=== PATIENT | female | born 1985 | race Caucasian/White ===

== ENCOUNTER 2024-09-24 09:54 | Emergency (ER) | payer OTHER ==
[2024-09-24 10:01] VITALS: TEMP 98.2
--- NOTE | 2024-09-24 11:00 | ED ---
General Adult HPI - General Chief complaint: Abdominal Pain Stated complaint: Abdominal Pain Time Seen by Provider: 09/24/24 10:08 Source: patient, RN notes reviewed Mode of arrival: ambulatory Limitations: no limitations - History of Present Illness Initial comments: Patient is a 39-year-old female presenting to the emergency department with concern with abdominal discomfort. Symptoms have progressed over the past 2 to 3 weeks. Patient has occasional nausea. Symptoms do worsen with oral intake. Discomfort is mid to right upper abdomen. Discomfort is currently 7/10. - Related Data Previous Rx's Medication Instructions Recorded Famotidine [Pepcid] 20 mg PO BID #30 tablet 09/24/24 Ketorolac [Toradol] 10 mg PO Q6HR PRN #15 tab 09/24/24 Metoclopramide HCl [Reglan] 10 mg PO Q6HR PRN #15 tablet 09/24/24 Allergies Allergy/AdvReac Type Severity Reaction Status Date / Time No Known Allergies Allergy Verified 09/24/24 10:01 Review of Systems ROS Statement: Those systems with pertinent positive or pertinent negative responses have been documented in the HPI. ROS Other: All systems not noted in ROS Statement are negative. Constitutional: Denies: fever Eyes: Denies: eye pain ENT: Denies: ear pain Respiratory: Denies: cough Cardiovascular: Denies: chest pain Endocrine: Denies: fatigue Gastrointestinal: Reports: as per HPI, abdominal pain, nausea. Denies: vomiting Skin: Denies: rash Past Medical History Additional Past Medical History / Comment(s): closed head injury, blood transfusion, diverticulitis, History of Any Multi-Drug Resistant Organisms: None Reported Past Surgical History: Appendectomy, Tubal Ligation Additional Past Surgical History / Comment(s): upper and lower GI scope, Past Psychological History: Anxiety, Depression Smoking Status: Current every day smoker Past Alcohol Use History: None Reported Past Drug Use History: Marijuana General Exam Limitations: no limitations General appearance: alert, in no apparent distress Head exam: Present: normocephalic Eye exam: Present: normal appearance Neck exam: Present: normal inspection Respiratory exam: Present: normal lung sounds bilaterally Cardiovascular Exam: Present: regular rate, normal rhythm Expanded Peripheral pulses: 2+: Dorsalis Pedis (R), Dorsalis Pedis (L) GI/Abdominal exam: Present: soft, tenderness (Moderate right upper quadrant tenderness to palpation), normal bowel sounds. Absent: distended, guarding, rebound, rigid, pulsatile mass Extremities exam: Present: normal inspection Neurological exam: Present: alert Psychiatric exam: Present: normal affect, normal mood Skin exam: Present: normal color Course Vital Signs 09/24/24 09/24/24 09:57 10:01 Temperature 98.2 F Pulse Rate 68 89 Respiratory 18 20 Rate Blood Pressure 106/49 110/60 O2 Sat by Pulse 100 98 Oximetry EKG Findings - EKG Results: EKG: interpreted by ERMD, sinus rhythm, normal axis, normal QRS, normal ST/T EKG shows: bradycardia Medical Decision Making - Medical Decision Making Was pt. sent in by a medical professional or institution (, PA, SCADA OPERATOR, urgent care, hospital, or detention...) When possible be specific @ -No Did you speak to anyone other than the patient for history (EMS, parent, family, police, friend...)? What history was obtained from this source @ -No Did you review nursing and triage notes (agree or disagree)? Why? @ -I reviewed and agree with nursing and triage notes Were old charts reviewed (outside hosp., previous admission, EMS record, old EKG, old radiological studies, urgent care reports/EKG's, detention records)? Report findings @ -No old charts were reviewed Differential Diagnosis (chest pain, altered mental status, abdominal pain women, abdominal pain men, vaginal bleeding, weakness, fever, dyspnea, syncope, headache, dizziness, GI bleed, back pain, seizure, CVA, palpatations, mental health, musculoskeletal)? @ -Differential Abdominal Pain Women: Appendicitis, Cholecystitis, diverticulosis, ischemic bowel, pancreatitis, hepatitis, UTI, gastroenteritis, AAA, incarcerated hernia, bowel obstruction, constipation, inflammatory bowel, hepatitis, peptic ulcer disease, splenic infarction, perforated viscus, vulvitis, ovarian torsion, PID, kidney stone, placenta abruption, this is not meant to be an all-inclusive list EKG interpreted by me (3pts min.). @ -As above X-rays interpreted by me (1pt min.). @ -Abdominal x-ray shows nonspecific findings CT interpreted by me (1pt min.). @ -None done U/S interpreted by me (1pt. min.). @ -Ultrasound gallbladder shows possible gallstone versus possible polyp What testing was considered but not performed or refused? (CT, X-rays, U/S, labs)? Why? @ -None What meds were considered but not given or refused? Why? @ -None Did you discuss the management of the patient with other professionals (professionals i.e. , PA, SCADA OPERATOR, lab, RT, psych nurse, oncology social work, recruitment intern, teacher, tank officer, outsole caser)? Give summary @ -No Was smoking cessation discussed for >3mins.? @ -No Was critical care preformed (if so, how long)? @ -No Were there social determinants of health that impacted care today? How? (Homelessness, low income, unemployed, alcoholism, drug addiction, transportation, low edu. Level, literacy, decrease access to med. care, long term, rehab)? @ -No Was there de-escalation of care discussed even if they declined (Discuss DNR or withdrawal of care, Hospice)? DNR status @ -No What co-morbidities impacted this encounter? (DM, HTN, Smoking, COPD, CAD, Cancer, CVA, ARF, Chemo, Hep., AIDS, mental health diagnosis, sleep apnea, morbid obesity)? @ -None Was patient admitted / discharged? Hospital course, mention meds given and route, prescriptions, significant lab abnormalities, going to OR and other pertinent info. @ -Patient presents with abdominal discomfort consistent with concerns for gallbladder disease. Lab work unremarkable, ultrasound with possible stones. Patient will be discharged and recommended follow-up with surgery. Patient reevaluated and feels much better and is comfortable with discharge home. Undiagnosed new problem with uncertain prognosis? @ -No Drug Therapy requiring intensive monitoring for toxicity (Heparin, Nitro, Insulin, Cardizem)? @ -No Were any procedures done? @ -No Diagnosis/symptom? @ -Abdominal pain Acute, or Chronic, or Acute on Chronic? @ -Acute Uncomplicated (without systemic symptoms) or Complicated (systemic symptoms)? @ -Default Side effects of treatment? @ -No Exacerbation, Progression, or Severe Exacerbation? @ -No Poses a threat to life or bodily function? How? (Chest pain, [place], [place], pneumonia, PE, COPD, DKA, ARF, appy, cholecystitis, CVA, Diverticulitis, Homicidal, Suicidal, threat to staff... and all critical care pts) @ -Threat to GI function - Lab Data Result diagrams: 09/24/24 10:58 09/24/24 10:58 Lab Results 09/24/24 09/24/24 09/24/24 Range/Units 10:58 10:58 10:58 WBC 5.9 (3.8-10.6) k/uL RBC 4.42 (3.80-5.40) m/uL Hgb 12.2 (11.4-16.0) gm/dL Hct 37.5 (34.0-46.0) % MCV 85.0 (80.0-100.0) fL MCH 27.6 (25.0-35.0) pg MCHC 32.4 (31.0-37.0) g/dL RDW 16.8 H (11.5-15.5) % Plt Count 291 (150-450) k/uL MPV 7.7 Neutrophils % 45 % Lymphocytes % 42 % Monocytes % 5 % Eosinophils % 5 % Basophils % 1 % Neutrophils # 2.7 (1.3-7.7) k/uL Lymphocytes # 2.5 (1.0-4.8) k/uL Monocytes # 0.3 (0-1.0) k/uL Eosinophils # 0.3 (0-0.7) k/uL Basophils # 0.1 (0-0.2) k/uL Anisocytosis Slight PT 10.3 (10.0-12.5) sec INR 0.9 (<1.2) APTT 22.7 (22.0-30.0) sec Sodium 138 (137-145) mmol/L Potassium 4.5 (3.5-5.1) mmol/L Chloride 110 H (98-107) mmol/L Carbon Dioxide 24 (22-30) mmol/L Anion Gap 4 mmol/L BUN 5 L (7-17) mg/dL Creatinine 0.59 (0.52-1.04) mg/dL Est GFR (CKD-EPI)AfAm >90 (>60 ml/min/1.73 sqM) Est GFR (CKD-EPI)NonAf >90 (>60 ml/min/1.73 sqM) Glucose 91 (74-99) mg/dL Calcium 8.9 (8.4-10.2) mg/dL Total Bilirubin 0.7 (0.2-1.3) mg/dL AST 25 (14-36) U/L ALT 8 (4-34) U/L Alkaline Phosphatase 41 (38-126) U/L Total Protein 7.7 (6.3-8.2) g/dL Albumin 4.4 (3.5-5.0) g/dL Amylase 59 (30-110) U/L Lipase 88 (23-300) U/L HCG, Quant <2.4 mIU/mL Disposition Clinical Impression: Abdominal pain Disposition: HOME SELF-CARE Condition: Stable Instructions (If sedation given, give patient instructions): Abdominal Pain (ED) Additional Instructions: Please follow-up with general surgeon next week, number provided. Return for fever, uncontrolled vomiting, increased pain, change or worsening symptoms or any other concerns. Prescription has been sent to pharmacy. Prescriptions: Famotidine [Pepcid] 20 mg PO BID #30 tablet Metoclopramide HCl [Reglan] 10 mg PO Q6HR PRN #15 tablet PRN Reason: Nausea Ketorolac [Toradol] 10 mg PO Q6HR PRN #15 tab PRN Reason: Pain Is patient prescribed a controlled substance at d/c from ED?: No Referrals: Amari Lindsey DO [Doctor of Osteopathic Medicine] - 1-2 days Medhat Glaser MD [STAFF PHYSICIAN] - 1-2 days Time of Disposition: 13:00
[2024-09-24 11:12] LABS: Anisocytosis Slight; Basophils # (A) 0.1 k/uL (0-0.2); Basophils % (A) 1 %; Eosinophils # (A) 0.3 k/uL (0-0.7); Eosinophils % (A) 5 %; HCT 37.5 % (34.0-46.0); HGB 12.2 gm/dL (11.4-16.0); Lymphocytes # (A) 2.5 k/uL (1.0-4.8); Lymphocytes % (A) 42 %; MCH 27.6 pg (25.0-35.0); MCHC 32.4 g/dL (31.0-37.0); Mean Platelet Volume 7.7; Monocytes # (A) 0.3 k/uL (0-1.0); Monocytes % (A) 5 %; Neutrophils # (A) 2.7 k/uL (1.3-7.7); Neutrophils % (A) 45 %; Platelet Count 291 k/uL (150-450); RBC 4.42 m/uL (3.80-5.40); RDW 16.8 % (11.5-15.5); WBC 5.9 k/uL (3.8-10.6)
[2024-09-24] MEDS: SODIUM CHLORIDE 0.9% 1,000 ML IV STA (11:23)
[2024-09-24 11:25] LABS: INR 0.9 (<1.2); Partial Thromboplastin Time 22.7 sec (22.0-30.0); Prothrombin Time 10.3 sec (10.0-12.5)
[2024-09-24] MEDS: FAMOTIDINE 20 MG/2 ML VIAL IV STA (11:26)
[2024-09-24] MEDS: ONDANSETRON 4 MG/2 ML VIAL IVP STA (11:26)
[2024-09-24] MEDS: KETOROLAC 15 MG/ML 1 ML VIAL IVP STA (11:26)
[2024-09-24 11:27] LABS: ALT 8 U/L (4-34); African American GFR (CKD) >90 (>60 ml/min/1.73 sqM); Albumin 4.4 g/dL (3.5-5.0); Amylase 59 U/L (30-110); Anion Gap 4 mmol/L; Blood Urea Nitrogen 5 mg/dL (7-17); Calcium 8.9 mg/dL (8.4-10.2); Carbon Dioxide 24 mmol/L (22-30); Chloride 110 mmol/L (98-107); Glucose 91 mg/dL (74-99); Lipase 88 U/L (23-300); Non-African American GFR(CKD) >90 (>60 ml/min/1.73 sqM); Potassium 4.5 mmol/L (3.5-5.1); Sodium 138 mmol/L (137-145); Total Bilirubin 0.7 mg/dL (0.2-1.3); Total Protein 7.7 g/dL (6.3-8.2)
[2024-09-24 11:28] LABS: AST 25 U/L (14-36); Alkaline Phosphatase 41 U/L (38-126)
[2024-09-24 11:42] LABS: HCG,Quantitative Serum <2.4 mIU/mL
--- NOTE | 2024-09-24 12:20 | US ---
EXAMINATION TYPE: US gallbladder DATE OF EXAM: 09/24/2024 COMPARISON: NONE CLINICAL INDICATION: Female, 39 years old with history of pain; RUQ pain x 2 weeks TECHNIQUE: Grayscale and color Doppler imaging of the right upper quadrant was performed. FINDINGS: EXAM MEASUREMENTS: Liver Length: 15.7 cm Gallbladder Wall: 0.2 cm CBD: 0.3 cm Right Kidney: 9.7 x 4.2 x 4.3 cm Pancreas: Tail obscured by overlying bowel gas Liver: wnl Gallbladder: Possible free floating stone; difficult to view in decubitus position Evidence for sonographic Zuniga's sign: NO CBD: wnl Right Kidney: wnl IMPRESSION: No evidence for acute process. Cholelithiasis suggested versus small polyp consider 6 month follow-up to ensure stability. [facility] Mehta, , 09/24/2024 12:17 PM
[2024-09-24 13:14] VITALS: RESP 16
--- NOTE | 2024-09-24 13:18 | XR ---
EXAMINATION TYPE: XR KUB DATE OF EXAM: 09/24/2024 12:45 PM CLINICAL INDICATION: Female, 39 years old with history of abdominal pain; [facility] COMPARISON: None. TECHNIQUE: One radiographic view of the abdomen was obtained. FINDINGS: The bowel gas pattern is nonspecific without dilated loops of small or large bowel. . Fecal material and gas are demonstrated throughout the colon and rectum. There is no evidence for organomegaly or pneumoperitoneum. The osseous structures are intact. No ab normal calcifications are present. IMPRESSION: Nonspecific bowel gas pattern without radiographic evidence for acute process. [facility], , 09/24/2024 1:16 PM
[2024-09-24 13:32] VITALS: BP 91/60; PULSE 68
== END 2024-09-24 13:32 | disposition home or self-care (01) ==
LOC: EC 09:54
DX: R10.11 Right upper quadrant pain (principal); F17.200 Nicotine dependence, unspecified, uncomplicated; Z90.49 Acquired absence of other specified parts of digestive tract
CPT/HCPCS: 36415; 93005; 80053; 82150; 83690; 85025; 85610; 85730; 84702; 74018; 76705; 99284; 96374; 96375 ×2; 96361 ×2; J2405; J3490; J1885